=== PATIENT | female | born 1975 | race Caucasian/White ===

== ENCOUNTER → 2017-05-07 | Outpatient (CLI) | payer BC ==
[~2017-05-07] MED LIST: ALBU1AER9 INH; APRI28 PO; IMD/2 PO
== END | disposition home or self-care (01) ==
LOC: C.PAPS 13:45
PROVIDERS: ATTEND Obstetrics & Gynecology
DX: Z01.419 Encounter for gynecological examination (general) (routine) without abnormal findings (principal)